=== PATIENT | female | born 1965 | race Hispanic/Latino ===

== ENCOUNTER → 2018-05-24 | Outpatient (CLI) | payer OTHER ==
--- NOTE | 2018-05-24 18:39 | Diagnostic Imaging Report ---
EXAM: Transabdominal and Transvaginal Pelvic Ultrasound INDICATION: \S\ADNEXAL MASS/FAM HX OVARIAN CA/ACUTE CYSTITIS COMPARISON: None TECHNIQUE: Grayscale transverse and sagittal transabdominal and transvaginal images were obtained of the pelvis. Transvaginal imaging was medically necessary to better evaluate the endometrium and the adnexa. CLINICAL HISTORY: 52 year old A0; last menstrual period: Menopause. FINDINGS: Uterus Orientation: Normal Size: 9.2 x 3.5 x 4.1 cm, Normal Mass: 1.2 by was 0.8 x 1.7 cm intramural fibroid in the body of the uterus Cervix: Small densities. 0.2 cm calcification is nonspecific. Endometrium: Thickness: 0.3 cm, Normal. Appearance: Homogeneous echotexture without focal thickening. Right ovary: Not visualized Left ovary: Not visualized Adnexa: Normal Cul-de-sac: No free fluid IMPRESSION: Small intramural fibroid. Nonspecific 0.2 cm calcification within the cervix. This can be follow-up in 3-6 months. Signed by: Dr. Luisa Messer M.D. on 05/24/2018 6:35 PM
== END ==
LOC: US 14:54
PROVIDERS: ATTEND Obstetrics & Gynecology
DX: N94.9 Unspecified condition associated with female genital organs and menstrual cycle (principal); N30.01 Acute cystitis with hematuria; Z80.41 Family history of malignant neoplasm of ovary
CPT/HCPCS: 76830; 76856

== ENCOUNTER → 2019-02-21 | Outpatient (CLI) | payer OTHER ==
--- NOTE | 2019-02-21 09:49 | Diagnostic Imaging Report ---
EXAM: US ABDOMEN COMPLETE INDICATION: Abdominal distension, epigastric pain. COMPARISON: None TECHNIQUE: Transverse and longitudinal lane scale and color doppler sonographic images of the abdomen were obtained. FINDINGS: LIVER 12.6 cm in the right midclavicular line. Normal echogenicity of the liver with normal contour, no masses. SPLEEN 7.4 cm in maximum diameter. Normal echogenicity, no masses. GALLBLADDER No gallbladder wall thickening, distension, stone, or pericholecystic fluid. Negative reported sonographic Brody's sign. BILE DUCTS No intra nor extra-hepatic biliary dilation. Common bile duct measures 0.3 cm PANCREAS: Visualized portions are normal. RIGHT KIDNEY: 9.7 cm Echogenicity: Normal Collecting System: No hydronephrosis Stones: None Cyst/Mass: None LEFT KIDNEY: 10.7 cm Echogenicity: Normal Collecting System: No hydronephrosis Stones: None Cyst/Mass: None VESSELS: Aorta: Visualized portions are within normal size limits Inferior Vena Cava: Visualized portions are normal Main Portal Vein: 0.8 cm, normal size with hepatopetal flow. FREE FLUID: None IMPRESSION: Unremarkable abdominal ultrasound. Signed by: Dr. Angelica Flores MD on 02/21/2019 9:46 AM
--- NOTE | 2019-02-21 09:57 | Diagnostic Imaging Report ---
EXAM: US PELVIS COMPLETE NON OB INDICATION: Left lower quadrant abdominal pain. COMPARISON: Pelvic ultrasound 05/24/2018. TECHNIQUE/FINDINGS: Transabdominal sonographic evaluation of the pelvis. Exam is somewhat limited by the lack of transvaginal images. The uterus measures 7.0 x 2.9 x 4.8 cm. The endometrial stripe measures 0.3 cm. There is an intramural fibroid in the left body of the uterus, measuring up to 2.6 x 2.0 x 2.3 cm, previously measured at 1.2 x 0.8 x 1.7 cm. The previously noted calcification in the cervix is not visualized on this study. The bilateral ovaries are not well visualized. No evidence of free fluid. IMPRESSION: Somewhat limited examination. Bilateral ovaries are not visualized. Intramural fibroid, measuring up to 2.6 cm, previously 1.7 cm. Signed by: Dr. Angelica Flores MD on 02/21/2019 9:54 AM
== END ==
LOC: US 07:33
PROVIDERS: ATTEND Internal Medicine Gastroenterology
DX: R14.0 Abdominal distension (gaseous) (principal); R10.13 Epigastric pain; R10.814 Left lower quadrant abdominal tenderness; Z80.41 Family history of malignant neoplasm of ovary
CPT/HCPCS: 76700; 76856